=== PATIENT | male | born 1995 | race Caucasian/White ===

== ENCOUNTER 2018-05-16 23:42 | Emergency (ER) | payer OTHER, BC ==
[~2018-05-16] VITALS: Ht 195.6 cm; Wt 83.5 kg
[2018-05-16 23:53] VITALS: Ht 195.6 cm; Wt 83.5 kg
[2018-05-17 01:54] VITALS: BP 116/70
== END 2018-05-17 01:51 | disposition home or self-care (01) ==
LOC: ED 23:42
DX: R09.89 Other specified symptoms and signs involving the circulatory and respiratory systems (principal)
CPT/HCPCS: Q0092